=== PATIENT | female | born 1975 | race Two or more races ===

== ENCOUNTER 2024-12-29 11:21 | Emergency (ER) | payer OTHER ==
[~2024-12-29] VITALS: Ht 160 cm; Wt 74.8 kg
[~2024-12-29 11:21] MED LIST: AMOX1TAB5 PO; KETO10TA2 PO; PERCOCET 5/3251 TAB PO; TUSSIONEX PENNKI5 ML PO; URIN D.S. TABLE1 TAB PO
[2024-12-29 11:42] VITALS: O2SAT 100
[2024-12-29] MEDS ORDERED: KETOROLAC TROMETHAMINE 60 MG VIAL IM STA (12:10)
[2024-12-29] MEDS ORDERED: ACETAMINOPHEN 500 MG GEL..CAP PO STA (12:10)
[2024-12-29] MEDS ORDERED: KETOROLAC TROMETHAMINE 60 MG VIAL IM ONE (13:17)
[2024-12-29] MEDS ORDERED: ACETAMINOPHEN 500 MG GEL..CAP PO ONE (13:18)
[2024-12-29 13:50] VITALS: BP 118/80
== END 2024-12-29 13:51 | disposition home or self-care (01) ==
LOC: ER 11:21
DX: S40.011A Contusion of right shoulder, initial encounter (principal); S50.01XA Contusion of right elbow, initial encounter; S70.02XA Contusion of left hip, initial encounter; S30.0XXA Contusion of lower back and pelvis, initial encounter; W18.39XA Other fall on same level, initial encounter; Y93.89 Activity, other specified; Y92.018 Other place in single-family (private) house as the place of occurrence of the external cause; Y99.9 Unspecified external cause status; Z88.8 Allergy status to other drugs, medicaments and biological substances